=== PATIENT | male | born 1950 | race Caucasian/White ===

== ENCOUNTER 2021-03-01 17:28 | Emergency (ER) | payer OTHER, SELFPAY ==
[2021-03-01 17:35] VITALS: BP 122/72; PULSE 68; RESP 16; TEMP 36.6; O2SAT 98
--- NOTE | 2021-03-01 17:53 | ED.URI ---
HPI - URI/Sore Throat General Chief Complaint: Upper Respiratory Infection Stated Complaint: sinus infection Time Seen by Provider: 03/01/21 17:50 Source: patient, family, RN notes reviewed and old records reviewed Mode of arrival: ambulatory Limitations: no limitations History of Present Illness HPI Narrative: 70 year old male presents to [facility] care with complaints of history of chronic sinus problems with increased symptoms for the past 2 days of acute sinus pain, sore throat, nasal congestion,headache and cough. Patient states that he has used saline nasal spray and saltwater gargle, and also antihistamines..Patient reports that his cough is worse at night.Patient states that he has alot of burning in his throat, has history also of laryngeal reflux. Patient has had COVID vaccinations. MD elicited complaint: sore throat, nasal congestion and sinus pain Pertinent past history: sinusitis and other (allergies) Related Data Allergies Allergy/AdvReac Type Severity Reaction Status Date / Time No Known Allergies Allergy Verified 03/01/21 17:51 Review of Systems Review of Systems: CONSTITUTIONAL: Denies fever, chills, or sweats. EYES: Denies visual changes, redness, or discharge. ENT: Positive rhinorrhea, congestion, sore throat, no otalgia. CARDIOVASCULAR: Denies chest pain, palpitations, or edema. RESPIRATORY: Positive for cough, some dyspnea with cough. GASTROINTESTINAL: Denies abdominal pain, nausea, vomiting, or diarrhea. GENITOURINARY: Denies dysuria or hematuria. SKIN: Denies rash or itching. MUSCULOSKELETAL: Denies back pain, joint pain, or myalgia. NEUROLOGIC: Denies headache, numbness, or weakness. PSYCHIATRIC: Denies anxiety or depression. All systems reviewed & are unremarkable except as noted in HPI and below PMFSH Past Medical History Medical History (Updated 03/03/21 @ 16:38 by Shannon Thompson NP) Acid reflux Seasonal allergies Sinusitis Surgical History Surgical History (Updated 03/03/21 @ 16:39 by Shannon Thompson NP) No history of previous surgery Family History Family History (Updated 03/03/21 @ 16:40 by Shannon Thompson NP) Other Family history non-contributory Social History Social History (Updated 03/03/21 @ 16:40 by Shannon Thompson NP) Smoking status: Never smoker Alcohol intake: unknown Substance use: never Living arrangements: with family Gender identity (if verbalized by the patient): Male Exam Narrative: GENERAL: Well-appearing, well-nourished, and in no acute distress. HEAD: Normocephalic, atraumatic. EYES: PERRLA and EOMI. ENT: Nares red with swollen turbinates, clear to yellow tinged rhinorrhea no epistaxis. Mucous membranes moist.TM;s normal with dull light reflex, throat has no lesions or exudates, red with no tonsil enlargement with post nasal drainage noted. NECK: Supple.no lymphadenopathy CHEST: Clear to auscultation. No respiratory distress.SAO2 98% on room air.cough HEART: Regular rate and rhythm. No murmur heard. Normal peripheral pulses. ABDOMEN: Soft, nontender, nondistended, normal active bowel sounds. EXTREMITIES: Normal range of motion. No edema. SKIN: Warm, dry, no rash. NEURO: No focal deficits. Alert and oriented x3 Course Vital Signs Vital signs: Vital Signs Temperature 36.6 C 03/01/21 17:35 Pulse Rate 68 03/01/21 17:35 Respiratory Rate 16 03/01/21 17:35 Blood Pressure 122/72 03/01/21 17:35 Pulse Oximetry 98 03/01/21 17:35 Temperature 36.6 C 03/01/21 17:35 Pulse Rate 68 03/01/21 17:35 Respiratory Rate 16 03/01/21 17:35 Blood Pressure 122/72 03/01/21 17:35 Pulse Oximetry 98 03/01/21 17:35 MDM - URI/Sore Throat Differential Diagnosis Differential diagnosis: Likely upper respiratory infection, sinusitis, viral infection and pharyngitis Medical Records Attestation: I reviewed the patient's medical records. Critical Care Time Critical Care Time Critical Care Time: No Discharge Plan Dis
== END 2021-03-01 18:15 | disposition home or self-care (01) ==
PROVIDERS: Emergency Provider Registered Nurse
DX: J01.90 Acute sinusitis, unspecified (principal); B96.89 Other specified bacterial agents as the cause of diseases classified elsewhere
CPT/HCPCS: 99213; G0463